=== PATIENT | female | born 1980 ===

== ENCOUNTER 2018-05-29 18:40 | Emergency (ER) | payer SELFPAY ==
[2018-05-29 18:46] VITALS: BMI 27.4
[2018-05-29 18:48] VITALS: TEMP 98.5; O2SAT 100
[2018-05-29] MEDS ORDERED: Sodium Chloride 0.9% 1,000 ML IV STA (19:29)
--- NOTE | 2018-05-29 19:38 | ED PDOC ---
HPI: Headache Time Seen by Provider: 05/29/18 19:25 Chief Complaint (Provider): Headache History Per: Patient History/Exam Limitations: no limitations Onset/Duration Of Symptoms: Waxing/Waning (x1 week) Current Symptoms Are (Timing): Still Present Additional Complaint(s): 37 year old female presents to the ED for evaluation of a waxing and waning diffuse generalized headache for the past week. Patient reports she was recently seen by her PMD for similar symptoms and was given a script for sumatriptan, an MRI, and labs. Today, when she took the meds, she reports throwing them up, prompting her ED visit. PMD: Dr. Kline Past Medical History Reviewed: Historical Data Vital Signs: Last Vital Signs Temp 98.5 F 05/29/18 18:47 Pulse 82 05/29/18 18:47 Resp BP 163/90 H 05/29/18 18:47 Pulse Ox 100 05/29/18 18:47 - Medical History PMH: No Chronic Diseases - Surgical History Surgical History: No Surg Hx - Family History Family History: States: Unknown Family Hx - Allergies Allergies/Adverse Reactions: Allergies Allergy/AdvReac Type Severity Reaction Status Date / Time No Known Allergies Allergy Verified 05/29/18 19:29 Review of Systems ROS Statement: Except As Marked, All Systems Reviewed And Found Negative Gastrointestinal: Positive for: Vomiting (x1 episode secondary to medication) Neurological: Positive for: Headache (diffuse, generalized) Physical Exam - Reviewed Nursing Documentation Reviewed: Yes Vital Signs Reviewed: Yes - Physical Exam Appears: Positive for: No Acute Distress Head Exam: Positive for: ATRAUMATIC, NORMAL INSPECTION, NORMOCEPHALIC Skin: Positive for: Normal Color, Warm Eye Exam: Positive for: Normal appearance, EOMI, PERRL ENT: Positive for: Normal ENT Inspection Neck: Positive for: Normal, Painless ROM, Supple Cardiovascular/Chest: Positive for: Regular Rate, Rhythm Respiratory: Positive for: Normal Breath Sounds. Negative for: Respiratory Distress Neurologic/Psych: Positive for: Alert, Oriented (x3). Negative for: Motor/Sensory Deficits - Laboratory Results Result Diagrams: 05/29/18 20:21 05/29/18 20:21 Urine POC: Negative - ECG O2 Sat by Pulse Oximetry: 100 (RA) Pulse Ox Interpretation: Normal - Progress ED Course And Treament: CT HEAD: NO ACUTE INTRACRANIAL ABNORMALITY. REGLAN 10 MG IV X 1 DOSE NS 1 LITER IV BOLUS PATIENT VOMITED IN ED. ZOFRAN 4 MG IVX 1 DOSE TORADOL 15 MG IV X 1 DOSE RE-EVALUATED AT 11:56PM FEELS IMPROVED. HEADACHE AND NAUSEA RESOLVED. Medical Decision Making Medical Decision Making: Time: 1928 Initial Impression: headache Initial Plan: --CMP --U-preg --CBC with differential --NS IV --Reglan 10mg IVP --Discussed with patient pros and cons of a head CT, and patient expressed that she prefers to get a head CT at this time Scribe Attestation: Documented by Melissa Mane, acting as a scribe for Linda Ayon PA-C. Provider Scribe Attestation: All medical record entries made by the Scribe were at my direction and personally dictated by me. I have reviewed the chart and agree that the record accurately reflects my personal performance of the history, physical exam, [facility] decision making, and the department course for this patient. I have also personally directed, reviewed, and agree with the discharge instructions and disposition. Disposition - Clinical Impression Clinical Impression: Headache - Patient ED Disposition Is Patient to be Admitted: No - Disposition Disposition: Routine/Home Disposition Time: 23:56 Condition: FAIR Additional Instructions: HEAD CT: IMPRESSION NO INTRACRANIAL ABNORMALITY Instructions: Migraine Headaches in Adults Forms: [facility] ED School/Work Excuse Print Language: CENTRAL AFRICAN
[2018-05-29 20:30] LABS: BASO # 0.1 K/uL (0.0-0.2); BASO % 0.8 % (0.0-2.0); EOS % 0.2 % (0.0-4.0); HEMOGLOBIN 11.2 g/dL (12.0-16.0); LYMPH # 1.3 K/uL (1.0-4.3); LYMPH % 13.4 % (20.0-40.0); MEAN CELL VOLUME 73.5 fl (81.0-99.0); MEAN CORPUSCULAR HGB CONC 31.4 g/dL (33.0-37.0); MEAN PLATELET VOLUME 8.7 fl (7.2-11.7); MONO # 0.3 K/uL (0.0-0.8); MONO % 3.4 % (0.0-10.0); NEUT # 7.8 K/uL (1.8-7.0); NEUT % 82.2 % (50.0-75.0); RBC 4.87 Mil/uL (3.80-5.20); RED CELL DISTRIBUTION WIDTH 16.6 % (11.5-14.5); WHITE BLOOD COUNT 9.5 K/uL (4.8-10.8)
[2018-05-29 20:53] LABS: ALB/GLOB RATIO 1.4 (1.0-2.1); ALBUMIN 4.7 g/dL (3.5-5.0); ALT/SGPT 40 U/L (9-52); AST/SGOT 36 U/L (14-36); BLOOD UREA NITROGEN 11 mg/dl (7-17); CALCIUM 9.2 mg/dL (8.4-10.2); GFR NON-AFRICAN AMERICAN > 60
[2018-05-29 23:58] VITALS: BP 111/66; PULSE 72; RESP 18
--- NOTE | 2018-05-30 10:25 | CT ---
Date of service: 05/29/2018 PROCEDURE: CT HEAD WITHOUT CONTRAST. HISTORY: HEADACHE COMPARISON: None available. TECHNIQUE: Axial computed tomography images were obtained through the head/brain without intravenous contrast. Supplemental Coronal and Sagittal projections created and reviewed. Radiation dose: Total exam DLP = 690.90 mGy-cm. This CT exam was performed using one or more of the following dose reduction techniques: Automated exposure control, adjustment of the mA and/or kV according to patient size, and/or use of iterative reconstruction technique. FINDINGS: HEMORRHAGE: No intracranial hemorrhage. BRAIN: No mass effect or edema. No atrophy or chronic microvascular ischemic changes. VENTRICLES: Unremarkable. No hydrocephalus. CALVARIUM: Unremarkable. PARANASAL SINUSES: Unremarkable as visualized. No significant inflammatory changes. MASTOID AIR CELLS: Unremarkable as visualized. No inflammatory changes. OTHER FINDINGS: None. IMPRESSION: No acute intracranial abnormalities. No significant findings to account for the clinical presentation. Concordant results (preliminary interpretation) provided by [employer]. Procedure Completed: 20:45. Preliminary Report: Dictated and Authenticated: 21:20. Final Interpretation: 10:20. May 30, 2018
== END 2018-05-30 00:02 | disposition home or self-care (01) ==
LOC: H.ER 18:40
DX: R51 Headache (principal)
CPT/HCPCS: 70450; 80053; 81025; 85025; 96361; 96374; 96375; 99285; J1885; J2405; J2765; J7030